=== PATIENT | female | born 1940 | race Caucasian/White ===

== ENCOUNTER → 2016-07-05 | Outpatient (CLI) | payer MEDICARE | END | disposition home or self-care (01) | LOC: LAB.O 15:24 | PROVIDERS: ATTEND Nurse Practitioner Family | DX: R07.9 Chest pain, unspecified (principal); R53.83 Other fatigue ==

== ENCOUNTER 2017-01-11 15:16 | Emergency (ER) | payer MEDICARE ==
--- NOTE | 2017-01-11 15:50 | ED.PDOC ---
History of Present Illness - General Chief Complaint: Behavioral / Psych Stated Complaint: anxiety Time Seen by Provider: 01/11/17 15:37 Source: patient, family Exam Limitations: no limitations - History of Present Illness Initial Comments: Patient presents after having an anxiety attack that started about two hours ago. She has been under a lot of stress. Per her , she has been dealing with the fact that her son has colon cancer. She has had previous episodes and has an RX for Xanax at home. She took one before EMS got there. At the time, her arms and legs were weak and "losing feeling". That has since resolved and the patient is calm in the E.D. No other complaints. Timing/Duration: 1-3 hours Severity: moderate Improving Factors: nothing Worsening Factors: nothing Associated Symptoms: weakness Allergies/Adverse Reactions: Allergies Codeine Allergy (Verified 01/11/17 16:08) Sulfa Antibiotics Allergy (Verified 01/11/17 16:08) Home Medications: Ambulatory Orders ALPRAZolam [Xanax] 0.5 mg PO BID PRN 01/11/17 Dexlansoprazole [Dexilant] 30 mg PO DAILY 01/11/17 Review of Systems - Review of Systems Constitutional: States: weakness EENTM: States: no symptoms reported Respiratory: States: no symptoms reported Cardiology: States: no symptoms reported Gastrointestinal/Abdominal: States: no symptoms reported Genitourinary: States: no symptoms reported Musculoskeletal: States: no symptoms reported Skin: States: no symptoms reported Neurological: States: see HPI Endocrine: States: no symptoms reported Hematologic/Lymphatic: States: no symptoms reported Family Medical History - Family History Mother Family History: No Known Physical Exam - Physical Exam General Appearance: Alert Respiratory: lungs clear Cardiovascular/Chest: normal peripheral pulses, regular rate, rhythm Gastrointestinal/Abdominal: normal bowel sounds, non tender, soft Back Exam: no CVA tenderness Neurologic: debrander II-XII nml as tested, no motor/sensory deficits, alert, normal mood/affect Skin Exam: normal color Progress - Progress Progress: 01/11/17 16:30 Patient remained asymptomatic while in the E.D. She was discharged in good condition. Departure - Departure Clinical Impression: Panic attack as reaction to stress Disposition: Discharge to Home or Self Care Condition: Good Departure Forms: ED Discharge - Pt. Copy, Patient Portal Self Enrollment Diet: resume usual diet Activity: increase activity as tolerated Referrals: Olvin Lyon MD [Primary Care Provider] - 1-2 Weeks Home Medications: Ambulatory Orders ALPRAZolam [Xanax] 0.5 mg PO BID PRN 01/11/17 Dexlansoprazole [Dexilant] 30 mg PO DAILY 01/11/17 Additional Instructions: Follow up with your primary doctor as needed.
[2017-01-11 15:55] VITALS: TEMP 98.3
[2017-01-11 17:08] VITALS: BP 152/87; O2SAT 97
== END 2017-01-11 16:50 | disposition home or self-care (01) ==
LOC: ER 15:16
DX: F43.0 Acute stress reaction (principal); Z88.6 Allergy status to analgesic agent; Z88.2 Allergy status to sulfonamides; Z79.899 Other long term (current) drug therapy